=== PATIENT | male | born 1955 | race Asian ===

== ENCOUNTER 2021-03-03 11:38 | Emergency (ER) | payer OTHER ==
[~2021-03-03] VITALS: Ht 167.6 cm; Wt 70.5 kg
[2021-03-03] MEDS ORDERED: ATOR10TA84 PO (11:42)
[2021-03-03] MEDS ORDERED: KETOROLAC TROMETHAMINE 10 MG TABLET PO ONE (12:45)
[2021-03-03 13:40] VITALS: BP 121/72
== END 2021-03-03 13:45 | disposition home or self-care (01) ==
LOC: EMS 11:38
DX: S93.602A Unspecified sprain of left foot, initial encounter (principal); E78.00 Pure hypercholesterolemia, unspecified; X50.1XXA Overexertion from prolonged static or awkward postures, initial encounter; Y93.67 Activity, basketball; Y92.89 Other specified places as the place of occurrence of the external cause; Y99.8 Other external cause status
CPT/HCPCS: 29515; 99283